=== PATIENT | female | born 1945 | race Caucasian/White ===

== ENCOUNTER → 2022-06-13 | Outpatient (CLI) | payer MEDICARE | END | disposition home or self-care (01) | LOC: LAB SHORT 14:37 → PLD 14:37 | DX: L72.0 Epidermal cyst (principal) | CPT/HCPCS: 88305 ==

== ENCOUNTER → 2023-06-23 | Outpatient (CLI) | payer MEDICARE ==
[2023-06-23 15:12] LABS: Hemoglobin 13.5 g/dL (11.5-16.0); Mean Corpuscular HGB 30.8 pg (26.0-34.0); Mean Corpuscular HGB Conc 34.6 g/dL (31.5-36.5); Mean Corpuscular Volume 89 fL (80-100); Platelet Count 367 K/mm3 (150-400); RDW Standard Deviation 42.5 fL (35.1-46.3); Red Blood Cell Count 4.38 M/mm3 (3.80-5.20); White Blood Cell Count 6.92 K/mm3 (4.00-11.30)
[2023-06-23 15:31] LABS: Alanine Aminotransfer (ALT/SGP 21 U/L (12-78); Albumin, Blood 3.9 g/dL (3.4-5.0); Albumin/Globulin Ratio 1.3 (0.8-1.8); Alk Phos 72 U/L (50-136); Anion Gap 10 mmol/L (3-11); Aspartate Aminotrans (AST/SGOT 15 U/L (12-37); Bilirubin, Total 0.5 mg/dL (0.1-1.0); Blood Urea Nitrogen 12 mg/dL (8-24); Bun/Creatinine Ratio 16.5 (12.0-20.0); CO2, Blood 29 mmol/L (21-32); Calcium, Blood 9.6 mg/dL (8.5-10.1); Chloride, Blood 96 mmol/L (98-108); Cholesterol 141 mg/dL (50-200); Creatinine, Blood 0.73 mg/dL (0.40-1.00); Glomerular Filtration Rate 85 (60-); Glucose, Blood 102 mg/dL (70-99); HDL Cholesterol 70 mg/dL (>39); LDL/HDL RATIO 0.7; Low Density Lipoprotein Chol 51 mg/dL (0-110); Sodium, Blood 131 mmol/L (136-145); Total Protein, Blood 6.9 g/dL (6.4-8.2); Triglycerides 98 mg/dL (30-160); Very Low Density Lipoprot Chol 19 mg/dL (6-32)
== END | disposition home or self-care (01) ==
LOC: LAB SHORT 14:32 → LAB 14:32
PROVIDERS: Internal Medicine
DX: E78.2 Mixed hyperlipidemia (principal); I10 Essential (primary) hypertension
CPT/HCPCS: 80053; 80061; 85027

== ENCOUNTER 2023-09-20 06:54 | Day surgery (SDC) | payer MEDICARE ==
[~2023-09-20] VITALS: Ht 167.6 cm; Wt 68.9 kg
[~2023-09-20 06:54] MED LIST: Balanced Salt Epinephrine Irrigation Solution 500 mL IR SCH; Lidocaine HCl/Pf 1% 5 ML VIAL ONE; Lidocaine HCl/Pf 1% 5 ML VIAL XX SCH; Moxifloxacin HCL 0.5 MG/0.1 ML 0.4MLSYR RIGHTEYE SCH; NS 500 ML IV ONE; PHENYLEPHRINE\\TROPICAMIDE\\TETRACAINE OPHTHALMIC DILATING SOLN RIGHTEYE PRN; Povidone-Iodine 450 DROP/30 ML Solution RIGHTEYE SCH; Triamcinolone Inj Susp 40 MG / ML 1ML Vial INJ SCH; Triamcinolone Inj Susp 40 MG / ML 1ML Vial ONE
[2023-09-20] MEDS ORDERED: NS 500 ML IV ONE (07:07)
[2023-09-20] MEDS ORDERED: LOSARTAN POTASS25 M2 PO (07:08)
[2023-09-20] MEDS ORDERED: LOVASTATIN20 MG PO (07:08)
[2023-09-20] MEDS ORDERED: TRIA50 PO (07:08)
[2023-09-20] MEDS ORDERED: Midazolam HCl 1MG / ML 2ML Vial ONE (07:58)
[2023-09-20] MEDS ORDERED: Tetracaine HCl 0.5% Opth Soln 15 ml RIGHTEYE ONE (07:59)
[2023-09-20 08:39] VITALS: BP 129/83
--- NOTE | 2023-09-20 08:39 | NUR ---
09/20/23 0839 Saman Posadas PT INSTRUCTED TO MONITOR B/P AT HOME AND FOLLOW UP WITH PCP, IF NEEDED.
== END 2023-09-20 08:32 | disposition home or self-care (01) ==
LOC: ORSCSDS 06:54
PROVIDERS: Ophthalmology
PROC: 08RJ3JZ Replacement of Right Lens with Synthetic Substitute, Percutaneous Approach (ICD-10-PCS; principal; 2023-09-20 08:00)
DX: H25.813 Combined forms of age-related cataract, bilateral (principal); I10 Essential (primary) hypertension; Z79.899 Other long term (current) drug therapy
CPT/HCPCS: J2001; J2250; J3301; J7040; V2632